=== PATIENT | female | born 2000 | race Two or more races ===

== ENCOUNTER 2023-12-18 05:52 | Emergency (ER) | payer OTHER, MEDICAID ==
[~2023-12-18] VITALS: Ht 160 cm; Wt 55.5 kg
[2023-12-18 06:11] VITALS: BP 154/92; PULSE 78; RESP 20; O2SAT 95
[2023-12-18 06:36] LABS: Urine Bacteria None Seen /hpf (None Seen)
[2023-12-18] MEDS ORDERED: FAMO20TA10 PO (06:37)
[2023-12-18 06:47] LABS: Basophils # (auto) 0.1 10 ^3/uL (0-0.2); Basophils % (auto) 0.6 % (0.0-2.0); Eosinophils # (auto) 0.3 10 ^3/uL (0-0.8); Hematocrit 37.5 % (36.0-46.0); Lymphocytes # (auto) 1.5 10 ^3/uL (0.4-5.4); Lymphocytes % (auto) 16.1 % (10.0-50.0); Mean Corpuscular Hemoglobin 28.5 pg (28.0-32.0); Monocytes # (auto) 0.6 10 ^3/uL (0-1.3); Monocytes % (auto) 6.9 % (0.0-12.0); Neutrophils # (auto) 6.9 10 ^3/uL (1.6-8.6); Neutrophils % (auto) 73.4 % (37.0-80.0); Red Blood Cells 4.21 10^6/uL (4.0-5.20); Red Cell Distribution Width 13.7 % (11.8-14.3); White Blood Cell 9.4 10^3/uL (4.4-10.8)
[2023-12-18 07:00] LABS: Chloride 107 mmol/L (98-107); Potassium 3.8 mmol/L (3.5-5.1); Sodium 141 mmol/L (136-145)
[2023-12-18 07:01] LABS: Anion Gap 7 (5-15); Carbon Dioxide 27 mmol/L (20-30)
[2023-12-18 07:02] LABS: Calcium 10.2 mg/dL (8.5-10.1)
[2023-12-18 07:06] LABS: BUN/Creatinine Ratio 7.4 (10.0-20.0); Blood Urea Nitrogen 7 mg/dL (9-23); Glucose 99 mg/dL (74-106)
[2023-12-18 07:07] LABS: Urine Blood TRACE /uL (Negative); Urine Clarity Clear (Clear); Urine Color Yellow (Yellow); Urine Hyaline Cast FEW /lpf (0 - 2); Urine Mucus FEW (None Seen); Urine Protein, UAD TRACE (Negative); Urine Specific Gravity 1.028 (1.001-1.035); Urine Urobilinogen Normal (Negative); Urine WBC 5 /hpf (0 - 5); Urine pH 5.5 (5.0-9.0)
== END 2023-12-18 08:37 | disposition home or self-care (01) ==
LOC: ER 05:52
DX: K29.70 Gastritis, unspecified, without bleeding (principal); R10.2 Pelvic and perineal pain; Z79.899 Other long term (current) drug therapy
CPT/HCPCS: 36415; 80048; 81001; 84702; 85025